=== PATIENT | male | born 1985 | race Caucasian/White ===

== ENCOUNTER 2021-05-31 12:48 | Inpatient (IN) | payer OTHER ==
[2021-05-31 13:24] VITALS: BMI 20.5
[2021-05-31] MEDS ORDERED: NICOTINE 10 MG CARTRIDGE (INHALER) IH PRN (14:30)
[2021-05-31] MEDS ORDERED: MAGNESIUM HYDROX 2400MG/30ML ORAL SUSPENSION 30 ML CUP PO PRN (14:30)
[2021-05-31] MEDS ORDERED: NICOTINE POLACRILEX 2 MG GUM BUC PRN (14:30)
[2021-05-31] MEDS ORDERED: MENTHOL/PHENOL 1 EACH UD MM PRN (14:30)
[2021-05-31] MEDS ORDERED: MAGNESIUM CITRATE 300 ML BOTTLE PO PRN (14:30)
[2021-05-31] MEDS ORDERED: hydrOXYzine PAMOATE 25 MG CAPSULE (FP) PO PRN (14:30)
[2021-05-31] MEDS ORDERED: IBUPROFEN 400 MG TABLET (FP) PO PRN (14:30)
[2021-05-31] MEDS ORDERED: MAG HYDROX/AL HYDROX/SIMETH 30 ML UNIT-DOSE CUP PO PRN (14:30)
[2021-05-31] MEDS ORDERED: ACETAMINOPHEN 325 MG TABLET (FP) PO PRN ×2 (14:30)
[2021-05-31] MEDS ORDERED: BISMUTH SUBSALICYLATE 524 MG/30 ML PO PRN (14:30)
[2021-05-31] MEDS ORDERED: ONDANSETRON *ODT* 4 MG TABLET SL PRN (14:30)
[2021-05-31] MEDS ORDERED: METHOCARBAMOL 500 MG TABLET PO PRN (14:30)
[2021-05-31] MEDS ORDERED: diazePAM 5 MG TABLET PO ONE (14:35)
[2021-05-31] MEDS: diazePAM 5 MG TABLET PO SCH ×2 (18:00→22:11)
[2021-05-31] MEDS: GABAPENTIN 400 MG CAPSULE PO SCH ×2 (18:01→22:14)
[2021-05-31] MEDS: NICOTINE 14 MG/24 HOURS TOPICAL PATCH TD SCH (19:13)
[2021-05-31] MEDS: MELATONIN 5 MG TABLETS PO SCH ×2 (22:10→22:13)
[2021-05-31] MEDS: MIRTAZAPINE 30 MG TABLET PO SCH (22:11)
[2021-05-31] MEDS: THIAMINE HCL 100 MG TABLET (FP) PO SCH (22:11)
[2021-06-01] MEDS ORDERED: methaDONE HCL 40 MG DISPERSABLE TABLET ONE (04:35)
[2021-06-01] MEDS ORDERED: methaDONE HCL 10 MG TABLET ONE (04:35)
[2021-06-01] MEDS: GABAPENTIN 400 MG CAPSULE PO SCH ×4 (05:23→23:52)
[2021-06-01] MEDS: diazePAM 5 MG TABLET PO SCH ×4 (05:23→22:26)
[2021-06-01] MEDS ORDERED: methaDONE HCL 10 MG TABLET PO SCH (06:00)
[2021-06-01] MEDS: PRENATAL VITAMINS W/ FOLIC ACID TABLET (FP) PO SCH (10:10)
[2021-06-01] MEDS: NICOTINE 14 MG/24 HOURS TOPICAL PATCH TD SCH (10:10)
[2021-06-01] MEDS: diazePAM 5 MG TABLET PO PRN ×2 (14:36→21:46)
[2021-06-01 15:24] LABS: HEMOGLOBIN 13.7 GM/dL (11.7-16.9); MCH 31.7 pg (25.7-33.7); MCHC 34.1 g/dl (32.0-35.9); MEAN CELL VOLUME 92.7 fl (80-96); MEAN PLT VOLUME 9.4 fl (7.5-11.1); PLATELET COUNT 298 10^3/uL (134-434); RBC 4.31 M/mm3 (4.00-5.60); RDW 14.5 % (11.9-15.9); WHITE BLOOD COUNT 5.8 K/mm3 (4.0-10.0)
[2021-06-01 15:31] LABS: CALCIUM 9.3 mg/dL (8.5-10.1)
[2021-06-01 15:32] LABS: ALBUMIN 3.5 g/dl (3.4-5.0); BLOOD UREA NITROGEN 11.8 mg/dL (7-18)
[2021-06-01 15:35] LABS: CREATININE 0.7 mg/dL (0.55-1.3)
[2021-06-01 15:37] LABS: BILIRUBIN,TOTAL 0.3 mg/dL (0.2-1); TOT PROT 6.4 g/dl (6.4-8.2)
[2021-06-01] MEDS ORDERED: methaDONE HCL 10 MG TABLET (FOR DETOX USE ONLY) PO ONE (16:25)
[2021-06-01] MEDS: MIRTAZAPINE 30 MG TABLET PO SCH (21:43)
[2021-06-01] MEDS: MELATONIN 5 MG TABLETS PO SCH (23:52)
[2021-06-01] MEDS: THIAMINE HCL 100 MG TABLET (FP) PO SCH (23:52)
[2021-06-02] MEDS ORDERED: methaDONE HCL 10 MG TABLET ONE (04:04)
[2021-06-02] MEDS ORDERED: methaDONE HCL 40 MG DISPERSABLE TABLET ONE (04:05)
[2021-06-02] MEDS: GABAPENTIN 400 MG CAPSULE PO SCH ×3 (05:19→22:17)
[2021-06-02] MEDS: diazePAM 5 MG TABLET PO SCH ×3 (05:19→22:18)
[2021-06-02] MEDS: NICOTINE 14 MG/24 HOURS TOPICAL PATCH TD SCH (10:21)
[2021-06-02] MEDS: PRENATAL VITAMINS W/ FOLIC ACID TABLET (FP) PO SCH (10:22)
[2021-06-02] MEDS: diazePAM 5 MG TABLET PO PRN ×3 (10:23→19:52)
[2021-06-02] MEDS ORDERED: MIRTAZAPINE 15 MG TABLET (FP) ONE (21:14)
[2021-06-02] MEDS: MELATONIN 5 MG TABLETS PO SCH (22:17)
[2021-06-02] MEDS: THIAMINE HCL 100 MG TABLET (FP) PO SCH (22:18)
[2021-06-02] MEDS: MIRTAZAPINE 30 MG TABLET PO SCH (22:18)
[2021-06-03] MEDS ORDERED: methaDONE HCL 40 MG DISPERSABLE TABLET ONE (04:15)
[2021-06-03] MEDS ORDERED: methaDONE HCL 10 MG TABLET ONE (04:15)
[2021-06-03] MEDS: diazePAM 5 MG TABLET PO SCH ×2 (06:23→17:37)
[2021-06-03] MEDS: GABAPENTIN 400 MG CAPSULE PO SCH ×3 (06:23→22:03)
[2021-06-03] MEDS: NICOTINE 14 MG/24 HOURS TOPICAL PATCH TD SCH (10:05)
[2021-06-03] MEDS: diazePAM 5 MG TABLET PO PRN ×2 (10:07→13:08)
[2021-06-03] MEDS: PRENATAL VITAMINS W/ FOLIC ACID TABLET (FP) PO SCH (10:08)
[2021-06-03] MEDS ORDERED: hydrOXYzine PAMOATE 25 MG CAPSULE (FP) PO PRN (15:36)
[2021-06-03] MEDS: MELATONIN 5 MG TABLETS PO SCH (22:03)
[2021-06-03] MEDS: MIRTAZAPINE 30 MG TABLET PO SCH (22:03)
[2021-06-03] MEDS: THIAMINE HCL 100 MG TABLET (FP) PO SCH (22:03)
[2021-06-04] MEDS ORDERED: methaDONE HCL 10 MG TABLET ONE (04:04)
[2021-06-04] MEDS ORDERED: methaDONE HCL 40 MG DISPERSABLE TABLET ONE (04:05)
[2021-06-04] MEDS: GABAPENTIN 400 MG CAPSULE PO SCH (05:35)
[2021-06-04] MEDS ORDERED: diazePAM 5 MG TABLET PO ONE (06:00)
[2021-06-04 06:16] VITALS: BP 108/58; PULSE 63; TEMP 97.6
== END 2021-06-04 08:48 | disposition home or self-care (01) | DRG 773 ==
LOC: YASAS 12:48 → Y6N 15:18 → Y3N 06-02 15:29
PROVIDERS: ADMIT Allergy & Immunology; ATTEND Allergy & Immunology
PROC: HZ2ZZZZ Detoxification Services for Substance Abuse Treatment (ICD-10-PCS; principal; 2021-05-31)
DX: F13.230 Sedative, hypnotic or anxiolytic dependence with withdrawal, uncomplicated (principal); F11.20 Opioid dependence, uncomplicated; F14.20 Cocaine dependence, uncomplicated; F17.210 Nicotine dependence, cigarettes, uncomplicated; F19.280 Other psychoactive substance dependence with psychoactive substance-induced anxiety disorder; F19.24 Other psychoactive substance dependence with psychoactive substance-induced mood disorder; F32.9 Major depressive disorder, single episode, unspecified; G47.00 Insomnia, unspecified; R63.4 Abnormal weight loss; Z68.20 Body mass index [BMI] 20.0-20.9, adult
CPT/HCPCS: 36415; 80053; 85027; C9803; U0003; U0005

== ENCOUNTER 2021-10-25 13:31 | Inpatient (IN) | payer OTHER ==
[2021-10-25] MEDS ORDERED: IBUPROFEN 400 MG TABLET (FP) PO PRN (15:17)
[2021-10-25] MEDS ORDERED: MAG HYDROX/AL HYDROX/SIMETH 30 ML UNIT-DOSE CUP PO PRN (15:17)
[2021-10-25] MEDS ORDERED: MAGNESIUM HYDROX 2400MG/30ML ORAL SUSPENSION 30 ML CUP PO PRN (15:17)
[2021-10-25] MEDS ORDERED: MAGNESIUM CITRATE 300 ML BOTTLE PO PRN (15:17)
[2021-10-25] MEDS ORDERED: MENTHOL/PHENOL 1 EACH UD MM PRN (15:17)
[2021-10-25] MEDS ORDERED: ONDANSETRON *ODT* 4 MG TABLET SL PRN (15:17)
[2021-10-25] MEDS ORDERED: BISMUTH SUBSALICYLATE 262 MG/15 ML BTL PO PRN (15:17)
[2021-10-25] MEDS ORDERED: ACETAMINOPHEN 325 MG TABLET (FP) PO PRN ×2 (15:17)
[2021-10-25 15:54] VITALS: BMI 26.3
[2021-10-25] MEDS ORDERED: methaDONE HCL 40 MG DISPERSABLE TABLET PO ONE (17:45)
[2021-10-25] MEDS: diazePAM 5 MG TABLET PO SCH ×2 (18:05→22:12)
[2021-10-25] MEDS: hydrOXYzine PAMOATE 25 MG CAPSULE (FP) PO SCH ×2 (18:06→22:13)
[2021-10-25] MEDS: MELATONIN 5 MG TABLETS PO SCH (22:12)
[2021-10-25] MEDS: GABAPENTIN 300 MG CAPSULE PO SCH (22:12)
[2021-10-25] MEDS: MIRTAZAPINE 15 MG TABLET (FP) PO SCH (22:13)
[2021-10-25] MEDS: THIAMINE HCL 100 MG TABLET (FP) PO SCH (22:13)
[2021-10-25] MEDS ORDERED: methaDONE HCL 10 MG TABLET (FOR DETOX USE ONLY) PO ONE ×2 (23:00)
[2021-10-26] MEDS: hydrOXYzine PAMOATE 25 MG CAPSULE (FP) PO SCH (05:49)
[2021-10-26] MEDS: GABAPENTIN 300 MG CAPSULE PO SCH ×3 (05:49→21:34)
[2021-10-26] MEDS: diazePAM 5 MG TABLET PO SCH ×4 (05:49→22:00)
[2021-10-26] MEDS ORDERED: methaDONE HCL 10 MG TABLET PO ONE (09:45)
[2021-10-26] MEDS ORDERED: methaDONE HCL 10 MG TABLET ONE (10:25)
[2021-10-26] MEDS ORDERED: methaDONE HCL 40 MG DISPERSABLE TABLET ONE (10:25)
[2021-10-26] MEDS: PRENATAL VITAMINS W/ FOLIC ACID TABLET (FP) PO SCH (10:25)
[2021-10-26] MEDS: METHOCARBAMOL 500 MG TABLET PO PRN ×2 (10:26→18:12)
[2021-10-26] MEDS ORDERED: methaDONE 40 MG, methaDONE 10 MG PO ONE (10:45)
[2021-10-26] MEDS ORDERED: NICOTINE POLACRILEX 4 MG GUM BUC PRN (11:46)
[2021-10-26] MEDS: NICOTINE 10 MG CARTRIDGE (INHALER) IH PRN ×2 (11:51→18:26)
[2021-10-26] MEDS: NICOTINE 21 MG/24 HOURS TOPICAL PATCH TD SCH (12:37)
[2021-10-26] MEDS: diazePAM 5 MG TABLET PO PRN ×2 (14:49→19:50)
[2021-10-26] MEDS: THIAMINE HCL 100 MG TABLET (FP) PO SCH (21:34)
[2021-10-26] MEDS: MIRTAZAPINE 15 MG TABLET (FP) PO SCH (21:34)
[2021-10-26] MEDS: MELATONIN 5 MG TABLETS PO SCH (23:38)
[2021-10-27] MEDS ORDERED: methaDONE HCL 40 MG DISPERSABLE TABLET ONE (05:14)
[2021-10-27] MEDS ORDERED: methaDONE HCL 10 MG TABLET ONE (05:14)
[2021-10-27] MEDS ORDERED: diazePAM 5 MG TABLET PO SCH (06:00)
[2021-10-27] MEDS ORDERED: methaDONE HCL 10 MG TABLET PO SCH ×2 (06:00)
[2021-10-27] MEDS ORDERED: methaDONE 40 MG, methaDONE 20 MG PO ONE (06:00)
[2021-10-27] MEDS: GABAPENTIN 300 MG CAPSULE PO SCH (06:06)
[2021-10-27] MEDS: diazePAM 5 MG TABLET PO PRN (09:11)
[2021-10-27] MEDS: NICOTINE 21 MG/24 HOURS TOPICAL PATCH TD SCH (09:11)
[2021-10-27] MEDS: PRENATAL VITAMINS W/ FOLIC ACID TABLET (FP) PO SCH (09:15)
[2021-10-27] MEDS: NICOTINE 10 MG CARTRIDGE (INHALER) IH PRN (09:18)
[2021-10-27 13:10] VITALS: BP 108/57; PULSE 69; TEMP 97.1
[2021-10-28] MEDS ORDERED: diazePAM 5 MG TABLET PO SCH (06:00)
[2021-10-28] MEDS ORDERED: methaDONE 40 MG, methaDONE 30 MG PO ONE (06:00)
[2021-10-28] MEDS ORDERED: methaDONE HCL 10 MG TABLET PO SCH ×2 (06:00)
[2021-10-29] MEDS ORDERED: diazePAM 5 MG TABLET PO ONE (06:00)
[2021-10-29] MEDS ORDERED: methaDONE HCL 40 MG DISPERSABLE TABLET PO SCH ×2 (06:00)
== END 2021-10-27 12:58 | disposition left against medical advice (07) | DRG 770 ==
LOC: YASAS 13:31 → Y6N 16:08
PROVIDERS: ADMIT Allergy & Immunology; ATTEND Allergy & Immunology
PROC: HZ2ZZZZ Detoxification Services for Substance Abuse Treatment (ICD-10-PCS; principal; 2021-10-25)
DX: F13.230 Sedative, hypnotic or anxiolytic dependence with withdrawal, uncomplicated (principal); F11.20 Opioid dependence, uncomplicated; F14.20 Cocaine dependence, uncomplicated; F17.210 Nicotine dependence, cigarettes, uncomplicated; F19.24 Other psychoactive substance dependence with psychoactive substance-induced mood disorder; F34.1 Dysthymic disorder; F41.9 Anxiety disorder, unspecified
CPT/HCPCS: 93005; 93010; C9803; Q0162; U0003; U0005